=== PATIENT | male | born 1975 | race Caucasian/White ===

== ENCOUNTER 2022-08-30 18:15 | Emergency (ER) | payer OTHER, SELFPAY ==
[2022-08-30 18:28] VITALS: BP 148/78; PULSE 66; RESP 16; TEMP 36.4; O2SAT 100
--- NOTE | 2022-08-30 18:46 | ED.URI ---
HPI - URI/Sore Throat General Chief Complaint: Upper Respiratory Infection Stated Complaint: Sore Throat,Congestion Time Seen by Provider: 08/30/22 18:41 Source: patient Mode of arrival: ambulatory Limitations: no limitations History of Present Illness HPI Narrative: Patient presents today complaining of a 3 day history of sore throat and postnasal drip that is worse in the mornings. Denies fever, cough, or any additional symptoms. He has been taking ibuprofen and Sudafed with some relief. Currently rates his pain 5/10. Related Data Home Medications Medication Instructions Recorded Confirmed cetirizine 10 mg tablet (Zyrtec) 10 mg PO DAILY 08/30/22 08/30/22 omeprazole magnesium 20 mg 20 mg PO DAILY 08/30/22 08/30/22 tablet,delayed release (Prilosec OTC) Allergies Allergy/AdvReac Type Severity Reaction Status Date / Time No Known Allergies Allergy Verified 08/30/22 18:26 Review of Systems Review of Systems: CONSTITUTIONAL: Denies body aches, fever, chills, or sweats. EYES: Denies visual changes, redness, or discharge. ENT: Denies rhinorrhea, congestion, or otalgia.+ sore throat, postnasal drip CARDIOVASCULAR: Denies chest pain, palpitations, or edema. RESPIRATORY: Denies cough or dyspnea. GASTROINTESTINAL: Denies abdominal pain, nausea, vomiting, or diarrhea. GENITOURINARY: Denies dysuria or hematuria. SKIN: Denies rash, itching, or wounds. MUSCULOSKELETAL: Denies back pain, joint pain, or myalgia. NEUROLOGIC: Denies headache, numbness, tingling, or weakness. PSYCH: Denies depression or anxiety. PMFSH Comments At time of signature, I have reviewed and agree with nursing past medical, surgical, social and family history unless otherwise noted. Please see nursing chart for further information. There is no relevant family history pertinent to the presenting complaint Exam Narrative: GENERAL: Well-appearing, well-nourished, and in no acute distress. HEAD: Normocephalic, atraumatic. EYES: EOMI. No redness or drainage. Conjunctivae normal. ENT: Mucous membranes pink and moist. Nares clear. No rhinorrhea. TMs normal bilaterally. Throat erythematous with mild edema. No exudate. Uvula midline. NECK: Normal AROM. Supple. Left anterior cervical chain lymphadenopathy. CHEST: No respiratory distress. Clear to auscultation. HEART: Regular rate and rhythm. No murmur appreciated. EXTREMITIES: Normal range of motion. No edema. SKIN: Warm, dry, no rash. Capillary refill normal. Normal skin turgor. NEURO: No focal deficits. Alert and oriented x3. Gait steady. PSYCH: Normal affect. No signs of depression or anxiety. Course Course Level of Care: Express Care Visit Vital Signs Vital signs: Vital Signs Temperature 97.5 F L 08/30/22 18:28 Pulse Rate 66 08/30/22 18:28 Respiratory Rate 16 08/30/22 18:28 Blood Pressure 148/78 H 08/30/22 18:28 Pulse Oximetry 100 08/30/22 18:28 Oxygen Delivery Room Air 08/30/22 18:28 Temperature 97.5 F L 08/30/22 18:28 Pulse Rate 66 08/30/22 18:28 Respiratory Rate 16 08/30/22 18:28 Blood Pressure 148/78 H 08/30/22 18:28 Pulse Oximetry 100 08/30/22 18:28 Oxygen Delivery Room Air 08/30/22 18:28 Reviewed. Pt has been instructed to follow up with his PCP regarding his elevated blood pressure today. MDM - URI/Sore Throat MDM Narrative Medical decision making narrative: Rapid strep negative. Culture pending. Symptoms consistent with URI. No prescriptions indicated at this time. Anticipatory guidance given. Differential Diagnosis Differential diagnosis: Likely upper respiratory infection, sinusitis, viral infection, pharyngitis and other (Strep throat) Lab Data Attestation: I reviewed the patient's lab results. Labs: Strep Screen Presumptive Negative *(Reference Range: Negative)* Critical Care Time Critical Care Time Critical Care Time: No Discharge Plan Discharge C
== END 2022-08-30 18:56 | disposition home or self-care (01) ==
PROVIDERS: Emergency Provider Nurse Practitioner
DX: J06.9 Acute upper respiratory infection, unspecified (principal)
CPT/HCPCS: 87081; 87880; 99203; G0463

== ENCOUNTER 2022-10-03 11:22 | Emergency (ER) | payer OTHER, SELFPAY ==
--- NOTE | 2022-10-03 11:32 | ED.URI ---
HPI - URI/Sore Throat General Chief Complaint: Upper Respiratory Infection Stated Complaint: cough,wheezing,congestion Time Seen by Provider: 10/03/22 11:32 Source: patient Mode of arrival: ambulatory Limitations: no limitations History of Present Illness HPI Narrative: Peyman is a 47-year-old male patient presenting to the clinic today with complaints of cough, wheezing, and chest congestion x4 days. He reports he took a at home COVID test yesterday and was negative. It is noting a lot of the wheezing at nighttime. Reports some mild shortness of breath and some chest discomfort when taking a deep breath and coughing. MD elicited complaint: cough, rhinorrhea, nasal congestion and other (Wheezing) Related Data Home Medications Medication Instructions Recorded Confirmed cetirizine 10 mg tablet (Zyrtec) 10 mg PO DAILY 08/30/22 10/03/22 omeprazole magnesium 20 mg 20 mg PO DAILY 08/30/22 10/03/22 tablet,delayed release (Prilosec OTC) Allergies Allergy/AdvReac Type Severity Reaction Status Date / Time No Known Allergies Allergy Verified 10/03/22 11:37 Review of Systems Review of Systems: Pertinent positives per HPI. Patient denies any fever, chills, rash, headache, visual changes, dizziness, shortness of breath, chest pain, palpitations, nausea, vomiting, diarrhea, constipation, abdominal pain, or any urinary issues. PMFSH Comments At the time of my signature, I reviewed and agree with the nursing past medical, surgical, social, and family history. There is no relevant family history pertinent to the patient complaint. Exam Narrative: General: Well-developed, well nourished, in no apparent distress Head: Normocephalic, atraumatic Eyes: Pupils equally round and reactive to light bilaterally, EOM intact, sclera and conjunctive clear, no discharge, lids normal Ears: TMs intact and dull,ear, ear canals clear, no drainage, grossly hearing normal. Nose: Nares patent, clear nasal discharge, moderate inflammation, no sinus tenderness. Mouth: Oral pharynx without lesions or masses, good dentition, MMM. Neck: Supple, trachea midline, no enlargement of anterior or posterior cervical nodes, no thyroid masses or goiter palpable. Cardio: Regular rate and rhythm, s1 and s2 normal, no murmur appreciated. Resp: Clear to auscultation bilaterally, no rhonchi, rales, wheezing or rubs Course Course Emergency Course: Portions of this record may have been created with voice recognition software. Level of Care: Express Care Visit Vital Signs Vital signs: Vital signs reviewed MDM - URI/Sore Throat MDM Narrative Medical decision making narrative: At the time of visit patient is resting comfortably on the exam table. Patient did COVID test yesterday was negative. I suspect patient has acute bronchitis. Prescription for Tessalon Perles, prednisone, and albuterol inhaler was sent to the pharmacy. Supportive measures were discussed with the patient he voiced understanding discharge instructions agrees to treatment plan. Differential Diagnosis Differential diagnosis: Likely upper respiratory infection, otitis media, sinusitis, viral infection, bronchitis, influenza, pharyngitis and other (COVID) Discharge Plan Discharge Clinical Impression: Acute bronchitis Qualifiers: Bronchitis organism: unspecified organism Qualified Code(s): J20.9 - Acute bronchitis, unspecified Patient Disposition: Home, Self-Care Condition: Stable Instructions: Antibiotic Form, Acute Bronchitis (ED) Additional Instructions: Take prescription medications only as prescribed- prednisone, albuterol inhaler, and Tessalon Perles Increase fluids and stay well hydrated Tylenol/motrin for pain/fever Flonase and OTC antihistamines as directed Vicks vapor rub to open sinuses Sinus rinses for congestion Cepacol spray, cough drops, throat lozenges, warm tea with honey/lemon, gargle salt water to soothe throat BRAT diet for diarrhea Cl
[2022-10-03 11:36] VITALS: BP 143/78; PULSE 86; RESP 18; TEMP 35.9; O2SAT 99
== END 2022-10-03 11:50 | disposition home or self-care (01) ==
PROVIDERS: Emergency Provider Nurse Practitioner Family
DX: J20.9 Acute bronchitis, unspecified (principal); K21.9 Gastro-esophageal reflux disease without esophagitis; Z86.16 Personal history of COVID-19
CPT/HCPCS: 99213; G0463

== ENCOUNTER 2022-11-24 17:59 | Emergency (ER) | payer OTHER, SELFPAY ==
--- NOTE | ~2022-11-24 | XR_ITS ---
EXAMINATION: XR chest 2V DATE: 11/24/2022 18:47 INDICATION: Generalized chest pain. Arrhythmia. TECHNIQUE: Frontal and lateral views of the chest were obtained. COMPARISON: None. FINDINGS: The chest demonstrates clear lungs without pneumonia, pleural effusion, or pneumothorax. Th e heart size is normal. Surgical clips in the right upper quadrant are likely from cholecystectomy. IMPRESSION: 1. No acute cardiopulmonary disease. Reviewed, dictated and finalized at location E.
--- NOTE | 2022-11-24 18:00 | ECG_ITS ---
Measurements Intervals [place] Rate: 67 P: 60 MD: 176 QRS: 9 QRSD: 83 T: 52 QT: 378 QTc: 400 Interpretive Statements SINUS RHYTHM BORDERLINE R WAVE PROGRESSION, ANTERIOR LEADS BORDERLINE ECG NO PREVIOUS ECG AVAILABLE FOR COMPARISON Electronically Signed On 11-25-2022 8:10:45 CDT by Eddie Goodrich D.O.
[2022-11-24 18:10] VITALS: BP 161/86; PULSE 55; RESP 20; TEMP 36.4; O2SAT 100
[2022-11-24 18:15] LABS: Basophils Percent Auto 0.5 % (0.2-1.2); Eosinophils Absolute Auto 0.1 K/mm3 (0-0.3); Eosinophils Percent Auto 1.8 % (0-4.4); Hematocrit 43.9 % (42.0-52.0); Hemoglobin 14.3 g/dL (14.0-18.0); Immature Granulocyte Absolute 0.02 K/mm3 (0.00-0.031); Immature Granulocyte Percent A 0.3 % (0-0.5); Lymphocytes Absolute Auto 2.12 K/mm3 (0.9-3.2); Lymphocytes Percent Auto 33.8 % (18.3-44.2); Mean Corpuscular HGB Conc 32.6 g/dl (32-36); Mean Platelet Volume 10.3 fl (7.4-10.4); Monocytes Absolute Auto 0.6 K/mm3 (0.1-0.6); Monocytes Percent Auto 8.8 % (2.6-8.5); Neutrophils Absolute Auto 3.4 K/mm3 (1.3-6.7); Neutrophils Percent Auto 54.8 % (45.5-73.1); Platelet Count Result 234 k/mm3 (150-375); Red Blood Count 5.49 M/mm3 (4.6-6.20); Red Cell Distribution Width 14.5 % (11.5-14.5); White Blood Count 6.3 K/mm3 (4.5-10.0)
[2022-11-24 18:30] LABS: Alanine Aminotransferase 23 U/L (6-50); Albumin Level 4.4 g/dL (3.5-5.1); Alkaline Phosphatase 76 U/L (38-126); Anion Gap 6 mmol/L (8-16); Aspartate Amino Transferase 30 U/L (17-59); Bilirubin,Total 0.4 mg/dL (0.2-1.3); Blood Urea Nitrogen 14 mg/dL (9-20); Calcium 8.3 mg/dL (8.4-10.2); Carbon Dioxide 28 mmol/L (22-30); Chloride 105 mmol/L (98-107); Estimated CRCL calculation 93 ml/min; Estimated Glomerular Filt Rate > 60; Glucose 118 mg/dL (65-110); Potassium 3.6 mmol/L (3.4-5.0); Prothrombin Time 13.1 Seconds (11.1-14.7); Sodium 139 mmol/L (137-145)
[2022-11-24 18:31] LABS: Partial Thromboplastin Time 28.1 SECONDS (22.3-36.8)
[2022-11-24 18:36] LABS: Troponin I < 0.012 ng/mL (0.000-0.034)
[2022-11-24 18:51] VITALS: O2SAT 100
[2022-11-24 18:56] LABS: Lipase 156 U/L (23-300)
[2022-11-24 18:58] VITALS: BP 148/107; PULSE 55; RESP 14; O2SAT 100
--- NOTE | 2022-11-24 19:35 | ED.GENADULT ---
HPI - General Adult General Chief complaint: Chest Pain Stated complaint: chest pain Time Seen by Provider: 11/24/22 19:03 History of Present Illness HPI narrative: This is a 47-year-old male who denies significant past medical history, presenting to the emergency department complaining of intermittent lightheadedness and chest pain for the past day. The patient states 1 week ago, he noted an episode of lightheadedness. Yesterday, he had throbbing right arm pain, today approximately 1 hour prior to arrival he noticed sharp back and chest pain, rated 4/10 lasting approximately 20 minutes with radiation to the left arm. This was associated with mild nausea. He was seen by his primary care doctor 2 days ago with any unremarkable EKG. He has a follow-up appointment with his salvage mechanic in 5 days. Related Data Home Medications Medication Instructions Recorded Confirmed cetirizine 10 mg tablet (Zyrtec) 10 mg PO DAILY 08/30/22 10/03/22 omeprazole magnesium 20 mg 20 mg PO DAILY 08/30/22 10/03/22 tablet,delayed release (Prilosec OTC) Allergies Allergy/AdvReac Type Severity Reaction Status Date / Time No Known Allergies Allergy Verified 10/03/22 11:37 Review of Systems Review of Systems: CONSTITUTIONAL: Denies fever, chills, or sweats. CARDIOVASCULAR: Chest and back pain denies palpitations, or edema. RESPIRATORY: Denies cough or dyspnea. GASTROINTESTINAL: Denies abdominal pain, nausea, vomiting, or diarrhea. GENITOURINARY: Denies dysuria or hematuria. SKIN: Denies rash or itching. MUSCULOSKELETAL: Denies back pain, joint pain, or myalgia. NEUROLOGIC: Lightheadedness denies headache, numbness, dizziness, or weakness. PSYCHIATRIC: Denies anxiety or depression. [facility] Social History Social History (Updated 11/24/22 @ 19:39 by Mustapha Mcclendon MD) Smoking status: Never smoker Alcohol intake: current Drinks per week: 1 Substance use: current Substance use type: marijuana Last use: 1 month ago Exam Narrative: GENERAL: Well-developed, well-nourished, and in no acute distress. HEAD: Normocephalic, atraumatic. EYES: PERRLA and EOMI. ENT: Nares clear, no rhinorrhea or epistaxis. Mucous membranes moist. Oropharynx without tonsillar hypertrophy exudate or other lesions. NECK: Supple. No adenopathy or masses. No carotid bruits or JVD CHEST: Clear to auscultation. No respiratory distress. No wheezes rales or rhonchi HEART: Regular rate and rhythm. No murmur heard. Normal peripheral pulses. ABDOMEN: Soft, nontender, nondistended, normal active bowel sounds. EXTREMITIES: Normal range of motion. No edema. SKIN: Warm, dry, no rash. NEURO: No focal deficits. Alert and oriented x3. PSYCH: Normal mood and affect. Course Course Emergency Course: 19:41 - CBC unremarkable. Chemistries demonstrate mild hypocalcemia of 8.3 but is otherwise unremarkable. Troponin negative. Chest x-ray unremarkable. HEART score 2 22:03 - Repeat troponin negative. TSH within normal limits. My suspicion for ACS is low at this time. Review of the patient's hospital medical assistant shows intermittent episodes of bradycardia to the mid 50s without other arrhythmias or bradycardic episodes below the 40s. I discussed these findings with the patient with recommendations to follow-up with his primary care doctor and salvage mechanic in 5 days. Discussed return and emergency precautions including signs/symptoms of ACS and respiratory distress. The patient voiced understanding and is comfortable with the plan. All questions answered to his satisfaction. Vital Signs Vital signs: Vital Signs Temperature 97.5 F L 11/24/22 18:10 Pulse Rate 55 L 11/24/22 18:10 Respiratory Rate 20 11/24/22 18:10 Blood Pressure 161/86 H 11/24/22 18:10 Pulse Oximetry 100 11/24/22 18:10 Oxygen Delivery Room Air 11/24/22 18:10 Temperature 97.5 F L 11/24/22 18:10 Pulse Rate 59 L 11/24/22 20:00 Respiratory Rate 14 11/24/22 20:00 Bloo
[2022-11-24 20:00] VITALS: BP 129/84; PULSE 59; RESP 14; O2SAT 99
[2022-11-24 21:47] LABS: Troponin I < 0.012 ng/mL (0.000-0.034)
[2022-11-24 22:17] VITALS: BP 124/84; PULSE 59; RESP 16; O2SAT 100
== END 2022-11-24 22:19 | disposition home or self-care (01) ==
PROVIDERS: Emergency Medicine; Emergency Provider Preventive Medicine Aerospace Medicine
DX: R07.89 Other chest pain (principal); R94.31 Abnormal electrocardiogram [ECG] [EKG]
CPT/HCPCS: 36415; 71046; 80053; 83690; 84443; 84484; 85025; 85610; 85730; 93005; 99284

== ENCOUNTER 2022-12-15 13:39 | Emergency (ER) | payer OTHER, SELFPAY ==
--- NOTE | ~2022-12-15 | XR_ITS ---
EXAMINATION: XR TMJ BI DATE: 12/15/2022 14:30 INDICATION: Locking jaw. TECHNIQUE: Open and closed mouth views of the bilateral temporomandibular joints for a total of 4 vie ws on 5 radiographs were obtained. COMPARISON: None. FINDINGS: The mandibular condyles are normal in morphology. There is normal anterior translation of t he mandibular condyles in the open-mouth position. IMPRESSION: 1. Normal temporomandibular joints. Reviewed, dictated and finalized at location A.
[2022-12-15 13:48] VITALS: BP 133/77; PULSE 63; RESP 14; TEMP 36.5; O2SAT 100
--- NOTE | 2022-12-15 13:59 | ED.DENTAL ---
HPI - Dental/Oral General Chief complaint: Dental/Oral Stated complaint: Rt Jaw Pain Time Seen by Provider: 12/15/22 13:59 Source: patient Mode of arrival: ambulatory Limitations: no limitations History of Present Illness HPI Narrative: 47 yo M presents with c/o pain to R TMJ for approx. 1 wk. States pain and stiff. When he wakes up in the morning stuck open on R side . After chewing and moving jaw loosens up throughout the day. Unsure if he grinds his teeth. Denies injury. Going out of town for vacation and wanted to see if something could be done to not have this pain while out of town. Denies dental pain. All systems reviewed and negative except as noted above. Related Data Home Medications Medication Instructions Recorded Confirmed cetirizine 10 mg tablet (Zyrtec) 10 mg PO DAILY 08/30/22 12/15/22 omeprazole magnesium 20 mg 20 mg PO DAILY 08/30/22 12/15/22 tablet,delayed release (Prilosec OTC) Allergies Allergy/AdvReac Type Severity Reaction Status Date / Time No Known Allergies Allergy Verified 12/15/22 13:48 Review of Systems Review of Systems: CONSTITUTIONAL: Denies fever, chills, or sweats. EYES: Denies visual changes, redness, or discharge. ENT: Denies rhinorrhea, congestion, sore throat, or otalgia. Reports R TMJ pain CARDIOVASCULAR: Denies chest pain, palpitations, or edema. RESPIRATORY: Denies cough or dyspnea. GASTROINTESTINAL: Denies abdominal pain, nausea, vomiting, or diarrhea. GENITOURINARY: Denies dysuria or hematuria. SKIN: Denies rash or itching. MUSCULOSKELETAL: Denies back pain, joint pain, or myalgia. NEUROLOGIC: Denies headache, numbness, or weakness. PSYCHIATRIC: Denies anxiety or depression. All other systems reviewed are negative, except as documented in HPI. PMFSH Social History Social History (Updated 11/24/22 @ 19:39 by Mustapha Mcclendon MD) Smoking status: Never smoker Alcohol intake: current Drinks per week: 1 Substance use: current Substance use type: marijuana Last use: 1 month ago Comments At time of signature, agree with nursing past medical, surgical, social and family history. There is no relevant family history pertinent to the presenting complaint. Exam Narrative: GENERAL: This is a well-nourished, well-developed patient, in no apparent distress. HEAD: normocephalic, atraumatic. EYES: PERRL. Sclera clear/white. Vision is grossly intact. EARS: External ears normal NOSE: External nose normal THROAT: Mucous membranes moist, posterior pharynx clear. MOUTH: normal range of motion of jaw. No tenderness on palpation of TMJs. no clicking or popping. No unilateral facial swelling. NECK: Neck supple, non-tender without lymphadenopathy, masses or thyromegaly. CARDIOVASCULAR: Regular rate and rhythm without murmurs, gallops, or rubs. RESPIRATORY: Clear to auscultation. Breath sounds equal bilaterally. No wheezes, rales, or rhonchi. SKIN: warm, Dry, intact with no suspicious lesions or rash, good texture and turgor. NEURO: awake, alert, and oriented to person, place and time. There were no obvious focal neurologic abnormalities. EXTREMITIES: No joint tenderness, effusion, or edema noted. Course Course Level of Care: Express Care Visit Vital Signs Vital signs: Vital Signs Temperature 36.5 C 12/15/22 13:48 Pulse Rate 63 12/15/22 13:48 Respiratory Rate 14 12/15/22 13:48 Blood Pressure 133/77 12/15/22 13:48 Pulse Oximetry 100 12/15/22 13:48 Oxygen Delivery Room Air 12/15/22 13:48 Temperature 36.5 C 12/15/22 13:48 Pulse Rate 63 12/15/22 13:48 Respiratory Rate 14 12/15/22 13:48 Blood Pressure 133/77 12/15/22 13:48 Pulse Oximetry 100 12/15/22 13:48 Oxygen Delivery Room Air 12/15/22 13:48 reviewed MDM - Dental/Oral MDM Narrative Medical decision making narrative: discussed x-ray results with pt. recommend seeing a dentist or teachers' aide, trying mouth guard. Patient is aware of di
== END 2022-12-15 14:50 | disposition home or self-care (01) ==
PROVIDERS: Emergency Provider Nurse Practitioner Family
DX: M26.621 Arthralgia of right temporomandibular joint (principal)
CPT/HCPCS: 70330; 99213; G0463

== ENCOUNTER 2023-04-03 17:53 | Emergency (ER) | payer OTHER, SELFPAY ==
[2023-04-03 18:08] VITALS: BP 140/79; PULSE 63; RESP 16; TEMP 36.6; O2SAT 100
--- NOTE | 2023-04-03 18:09 | ED.WOUNDLAC ---
HPI - Wound/Laceration General Chief Complaint: Wound/Laceration Stated Complaint: suture removal Source: patient Mode of arrival: ambulatory Limitations: no limitations History of Present Illness HPI narrative: 48-year-old male presented for suture removal. He states she had hair transplant using [employer], and was advised to have sutures removed yesterday, however it was his birthday and he elected to have them removed today. Sutures extend across the back of the head from ear to ear. He denies any complications of the surgery. He endorses a scab to the anterior scalp which she would like evaluated. Related Data Home Medications Medication Instructions Recorded Confirmed cetirizine 10 mg tablet (Zyrtec) 10 mg PO DAILY 08/30/22 12/15/22 omeprazole magnesium 20 mg 20 mg PO DAILY 08/30/22 12/15/22 tablet,delayed release (Prilosec OTC) Allergies Allergy/AdvReac Type Severity Reaction Status Date / Time No Known Allergies Allergy Verified 12/15/22 13:48 Review of Systems Review of Systems: CONSTITUTIONAL: Denies body aches, fever, chills, or sweats. EYES: Denies visual changes, redness, or discharge. ENT: Denies rhinorrhea, congestion CARDIOVASCULAR: Denies chest pain, palpitations, or edema. RESPIRATORY: Denies cough or dyspnea. GASTROINTESTINAL: Denies abdominal pain, nausea, vomiting, or diarrhea. SKIN: Reports sutures to scalp MUSCULOSKELETAL: Denies back pain, joint pain, or myalgia. NEUROLOGIC: Denies headache, numbness, tingling, or weakness. [facility] Past Medical History Medical History (Updated 04/03/23 @ 19:36 by Laura Shields APRN) No pertinent past medical history Social History Social History Smoking status: Never smoker Alcohol intake: current Drinks per week: 1 Substance use: current Substance use type: marijuana Last use: 1 month ago Comments At time of signature, I have reviewed and agree with nursing past medical, surgical, social and family history unless otherwise noted. Please see nursing chart for further information. There is no relevant family history pertinent to the presenting complaint Exam Narrative: GENERAL: Well-appearing HEAD: Normocephalic, Sutures in place posterior scalp, scab to left anterior scalp. EYES: conjunctivae clear, and EOMI. ENT: Mucous membranes moist. Oropharynx without edema, erythema or lesions. NECK: Supple. No lymphadenopathy CHEST: Clear to auscultation. HEART: Regular rate and rhythm. SKIN: Warm, dry. Irregular scab approx 2cm to left anterior scalp, firm and intact; no surrounding induration, fluctuance, or active drainage. Blue sutures to posterior scalp extending across from ear to ear in continuous pattern. Incision healing well, edges approximated, no surrounding induration or signs of infection. NEURO: Alert and oriented x3. Course Course Emergency Course: Patient is aware of diagnosis, understands and agrees to treatment plan. Anticipatory guidance given. Patient agrees to follow-up as directed and is aware of reasons to seek care at the emergency department. Portions of this record may have been created with voice recognition software Level of Care: Express Care Visit Vital Signs Vital signs: Vital Signs Temperature 97.8 F 04/03/23 18:08 Pulse Rate 63 04/03/23 18:08 Respiratory Rate 16 04/03/23 18:08 Blood Pressure 140/79 04/03/23 18:08 Pulse Oximetry 100 04/03/23 18:08 Oxygen Delivery Room Air 04/03/23 18:08 Temperature 97.8 F 04/03/23 18:08 Pulse Rate 63 04/03/23 18:08 Respiratory Rate 16 04/03/23 18:08 Blood Pressure 140/79 04/03/23 18:08 Pulse Oximetry 100 04/03/23 18:08 Oxygen Delivery Room Air 04/03/23 18:08 Reviewed Procedures Other Procedure Procedure 1: Other Procedure: Continuous sutures removed from posterior head, approx 20cm length. Pt tolerated well. N
== END 2023-04-03 18:35 | disposition home or self-care (01) ==
PROVIDERS: Emergency Provider Nurse Practitioner Family
DX: Z48.02 Encounter for removal of sutures (principal)
CPT/HCPCS: 99211; G0463

== ENCOUNTER 2023-10-01 12:35 | Outpatient (CLI) | payer OTHER, SELFPAY ==
--- NOTE | 2023-10-01 12:49 | ECG_ITS ---
Measurements Intervals [place] Rate: 61 P: 63 HI: 174 QRS: -1 QRSD: 75 T: 36 QT: 367 QTc: 371 Interpretive Statements SINUS RHYTHM WITH OCCASIONAL ECTOPIC PREMATURE COMPLEXES OTHERWISE UNREMARKABLE ECG COMPARED TO ECG 11/24/2022 18:03:44 NO SIGNIFICANT CHANGES Electronically Signed On 10-01-2023 13:21:19 CDT by Akhil Chaudhary M.D.
== END 2023-10-01 12:36 | disposition home or self-care (01) ==
LOC: ANHCARD 12:37
PROVIDERS: PCP Family Medicine; Visit Provider Family Medicine
DX: I48.0 Paroxysmal atrial fibrillation (principal)
CPT/HCPCS: 93005

== ENCOUNTER 2023-10-18 08:53 | Day surgery (SDC) | payer OTHER, SELFPAY ==
[2023-09-28 13:13] VITALS: BMI 30.9
[2023-10-04 14:35] VITALS: BMI 31.2
--- NOTE | 2023-10-18 09:47 | WPDANESEPPF ---
Anes - Initial Pre Proc Eval Procedure: Operation Date: 10/18/23 11:00 Proposed Procedures p Esophagogastroduodenoscopy - Holger Tobar MD Date/Time: 10/18/23 09:47 Surgeon: Holger Tobar MD Pre Op Diagnosis: GERD without esophagitis Patient Data Age: 48 Gender: M Height: 1.83 m Weight: 104.5 kg Allergies Allergy/AdvReac Type Severity Reaction Status Date / Time No Known Allergies Allergy Verified 10/18/23 09:50 Home Medications Medication Instructions Recorded Confirmed Type cetirizine 10 mg tablet (Zyrtec) 10 mg PO DAILY 08/30/22 10/18/23 History omeprazole magnesium 20 mg 20 mg PO DAILY #90 tabs 08/22/23 10/18/23 Rx tablet,delayed release (Prilosec OTC) sildenafil 50 mg tablet 50 mg PO DAILY PRN Sexual Activity 08/22/23 10/18/23 History glucosamine sulf dipot 1 cap PO DAILY 10/11/23 10/18/23 History chlr,msm,chond 550 mg-C 30 mg-rio 1 mg capsule (Glucosamine Chondroitin) melatonin 10 mg chewable tablet 10 mg PO HS 10/11/23 10/18/23 History metoprolol succinate 25 mg 25 mg PO DAILY 10/11/23 10/18/23 History tablet,extended release 24 hr multivitamin with minerals-folic 1 tablet PO DAILY 10/11/23 10/18/23 History acid 0.4 mg tablet Patient hx anesthesia problems: none Family hx anesthesia problems: none Results Review: All pre-operative results and documents have been reviewed as part of the pre-operative evaluation. [facility] Past Medical History Medical History Allergies BMI 30.0-30.9,adult BMI 31.0-31.9,adult Chronic anxiety TSH 1.52 with free T4 1.3 on 09/19/2023. Colon cancer screening patient reports normal colonoscopy around 2018. Diverticulitis Elevated fasting glucose (09/29/23) glucose 101 with hemoglobin A1c 6.1 on 09/29/2023. Encounter for prostate cancer screening PSA 1.31 on 09/29/2023. Encounter for wellness examination in adult Gallbladder disorder GERD (gastroesophageal reflux disease) IBS (irritable bowel syndrome) Kidney stones Male erectile dysfunction, unspecified Total testosterone 342, free testosterone 52 on 09/29/2023. No pertinent past medical history Obesity (BMI 30.0-34.9) Osteoarthritis involving multiple joints on both sides of body Paroxysmal atrial fibrillation (~09/22/23) EKG 10/01/2023 with normal sinus rhythm with occasional PVC. Seasonal allergic rhinitis Slow heart rate Weight loss Family History Family History Father , at age 34 Diabetes mellitus Heart disease Cerebrovascular accident Mother Alcoholism Depression Anxiety Heart disease Sibling Spina bifida Other Lymphoma Grandparent Diabetes mellitus Anxiety Depression Heart disease Social History Social History Smoking status: Never smoker Alcohol intake: current Alcohol use details: rarely Substance use: former Current Housing: Decline to Answer Concerned About Future Housing: Decline to Answer Difficulty Paying Gas/Electric Bills: Decline to Answer Difficulty Paying for Meds: Decline to Answer Currently Unemployed: Decline to Answer Education: Decline to Answer Difficulty w/ Childcare or Family Care: Decline to Answer Living arrangements: with family Spiritual care concerns: No Anes - Eval Final PreProcedure Day of Procedure 10/18/23 09:47 Patient weight: obese Heart: regular rate and rhythm Lungs: clear to auscultation Airway: Mallampati scale class II Neurological: alert and oriented Last oral intake: >/= 8 hours ASA classification: III Emergent: no Anesthetic plan: proceed Anesthesia type and monitoring: general GIVS and standard monitoring Results Review: All pre-operative results and documents have been reviewed as part of the pre-operative evaluation. Informed Consent: The patient's anesthetic p
[2023-10-18 09:57] VITALS: BMI 30.7
[2023-10-18 09:59] VITALS: BP 123/77; PULSE 55; RESP 18; TEMP 36.3; O2SAT 100
[2023-10-18] MEDS: LACTATED RINGERS 1,000 ML 150 ML IV CONT (10:15)
--- NOTE | 2023-10-18 10:28 | PM.HPGS ---
History of Present Illness History of Present Illness Consent: Risks, benefits, and alternatives have been discussed and questions answered. Patient agrees to proceed with procedure. Chief complaint: GERD without esophagitis Narrative: Peyman Watkins is a 48 year old male presents for EGD. Patient has lifelong history of acid reflux. He has been treated with Prilosec 20mg p.o. daily for many years. Occasionally supplements this with Pepcid at bedtime. Recently has noticed substernal discomfort with swallowing. He denies any overt dysphagia. He has had no weight loss or bleeding. He presents for follow-up EGD. Previous EGD was reported 10-15 years ago was reported to be relatively unremarkable. Review of Systems Review of Systems: Review of systems noncontributory. [facility] Past Medical History Medical History Allergies BMI 30.0-30.9,adult BMI 31.0-31.9,adult Chronic anxiety TSH 1.52 with free T4 1.3 on 09/19/2023. Colon cancer screening patient reports normal colonoscopy around 2018. Diverticulitis Elevated fasting glucose (09/29/23) glucose 101 with hemoglobin A1c 6.1 on 09/29/2023. Encounter for prostate cancer screening PSA 1.31 on 09/29/2023. Encounter for wellness examination in adult Gallbladder disorder GERD (gastroesophageal reflux disease) IBS (irritable bowel syndrome) Kidney stones Male erectile dysfunction, unspecified Total testosterone 342, free testosterone 52 on 09/29/2023. No pertinent past medical history Obesity (BMI 30.0-34.9) Osteoarthritis involving multiple joints on both sides of body Paroxysmal atrial fibrillation (~09/22/23) EKG 10/01/2023 with normal sinus rhythm with occasional PVC. Seasonal allergic rhinitis Slow heart rate Weight loss Family History Family History Father , at age 34 Diabetes mellitus Heart disease Cerebrovascular accident Mother Alcoholism Depression Anxiety Heart disease Sibling Spina bifida Other Lymphoma Grandparent Diabetes mellitus Anxiety Depression Heart disease Social History Social History Smoking status: Never smoker Alcohol intake: current Alcohol use details: rarely Substance use: former Current Housing: Decline to Answer Concerned About Future Housing: Decline to Answer Difficulty Paying Gas/Electric Bills: Decline to Answer Difficulty Paying for Meds: Decline to Answer Currently Unemployed: Decline to Answer Education: Decline to Answer Difficulty w/ Childcare or Family Care: Decline to Answer Living arrangements: with family Spiritual care concerns: No Meds Home Medications and Allergies Home Medications Medication Instructions Recorded Confirmed Type cetirizine 10 mg tablet (Zyrtec) 10 mg PO DAILY 08/30/22 10/18/23 History omeprazole magnesium 20 mg 20 mg PO DAILY #90 tabs 08/22/23 10/18/23 Rx tablet,delayed release (Prilosec OTC) sildenafil 50 mg tablet 50 mg PO DAILY PRN Sexual Activity 08/22/23 10/18/23 History glucosamine sulf dipot 1 cap PO DAILY 10/11/23 10/18/23 History chlr,msm,chond 550 mg-C 30 mg-rio 1 mg capsule (Glucosamine Chondroitin) melatonin 10 mg chewable tablet 10 mg PO HS 10/11/23 10/18/23 History metoprolol succinate 25 mg 25 mg PO DAILY 10/11/23 10/18/23 History tablet,extended release 24 hr multivitamin with minerals-folic 1 tablet PO DAILY 10/11/23 10/18/23 History acid 0.4 mg tablet Allergies Allergy/AdvReac Type Severity Reaction Status Date / Time No Known Allergies Allergy Verified 10/18/23 09:50 Vital Signs Vital Signs - 24 hr 10/18/23 09:59 Temperature 97.4 F L Pulse Rate 55 L Respiratory Rate 18 Blood Pressure 123/77 Pulse Oximetry 100 Oxygen Delivery Room Air Exam Narrative: Physical exam reveals patient
[2023-10-18 11:43] VITALS: BP 113/69; PULSE 59; RESP 14; O2SAT 97
--- NOTE | 2023-10-18 11:43 | WPDANESPN ---
Anes - Prog Note Post-Op Date/Time: 10/18/23 11:43 Cardiovascular status: normal Respiratory status: normal Airway patency: baseline Mental status: baseline Post-Op hydration status: normal Vital Signs: Last Vital Signs Temp 36.3 C L 10/18/23 09:59 Pulse 55 L 10/18/23 09:59 Resp 18 10/18/23 09:59 BP 123/77 10/18/23 09:59 Pulse Ox 100 10/18/23 09:59 O2 Del Method Room Air 10/18/23 09:59 Pain Score (VAS): 0 Patient Feedback: Patient satisfied with anesthetic care.
[2023-10-18 11:53] VITALS: BP 106/64; PULSE 57; RESP 16; O2SAT 97
[2023-10-18 12:03] VITALS: BP 113/71; PULSE 57; RESP 16; O2SAT 99
== END 2023-10-18 12:25 | disposition home or self-care (01) ==
PROVIDERS: PCP Family Medicine; Visit Provider Internal Medicine Gastroenterology
PROC: 0DJ08ZZ Inspection of Upper Intestinal Tract, Via Natural or Artificial Opening Endoscopic (ICD-10-PCS; CPT 43235; principal; 2023-10-18 11:00)
DX: K21.9 Gastro-esophageal reflux disease without esophagitis (principal)
CPT/HCPCS: 43239

== ENCOUNTER → 2025-04-07 12:15 | Outpatient (CLI) | payer OTHER, SELFPAY ==
--- NOTE | ~2025-04-07 | XR_ITS ---
EXAMINATION: XR abdomen/kub 1V, 04/07/2025 12:08 CDT HISTORY: R10.A1 - Flank pain, right side COMPARISON: No comparisons available. Technique: 3 view. Findings: Bowel gas pattern unremarkable. No obstruction. No free air. No abnormal calcifications No acute osseous abnormality. Impression: 1. No acute abnormality. Reviewed, dictated and finalized at location P. Impression: 1. No acute abnormality.
--- OUTSIDE RECORDS SUMMARY | 2025-04-07 13:12 | XMS_ITS | Clinical Summary ---
Author Organization [facility] Address [address] [place] [address] Care Team Providers Care Color Depositing Machine Tender Name Role Phone Otoniel Willard MD Primary Care Provider [phone] Allergies No known active allergies Medications acetaminophen (SB NON-ASPIRIN) 80 MG chewable tablet Chew 1 tablet (80 mg total) by mouth. Active metoprolol succinate ER (TOPROL-XL) 25 MG 24 hr tablet Take 1 tablet (25 mg total) by mouth daily. 5 Active omeprazole (PRILOSEC) 20 MG capsule Take 1 capsule (20 mg total) by mouth daily. 5 Active sildenafil (VIAGRA) 50 MG tablet TAKE ONE TABLET BY MOUTH APPROXIMATELY 30 MINUTES TO 4 HOURS BEFORE SEXUAL ACTIVITY. DO NOT USE MORE THAN ONE DOSE DAILY 5 Active Active Problems Problem Noted Date Diagnosed Date Heart palpitations 04/03/2025 Bradycardia 11/29/2022 Lightheadedness 11/29/2022 Near syncope 11/29/2022 Encounters Date Type Department Care Team Description 04/03/2025 1:45 PM CDT Office Visit [facility] [address] [place] [id number] Hannah Bender MD Consult; Palpitations 04/03/2025 Travel from Last 3 Months Family History Medical History Relation Comments Heart Attack Father Stroke Father Valve Disease Mother Heart Attack Paternal Grandfather Heart Attack Paternal Grandmother Relation Status Comments Brother Alive Father (Age 32) Mother Alive Paternal Grandfather (Age 74) Paternal Grandmother (Age 72) Social History Tobacco Use Types Packs/Day Years Used Date Smoking Tobacco: Never Smokeless Tobacco: Never Tobacco Cessation:Counseling Given: Not Answered Alcohol Use Standard Drinks/Week Comments Yes 0 (1 standard drink = 0.6 oz pur e alcohol) 1 a week/ social Sex and Gender Information Value Date Recorded Sex Assigned at Not on file Legal Sex Male 6:45 PM CDT Gender Identity Not on file Sexual Orientation Not on file Last Filed Vital Signs Vital Sign Reading Time Taken Comments Blood Pressure 142/84 04/03/2025 1:51 PM CDT Pulse 58 04/03/2025 1:51 PM CDT Temperature 36.4 C (97.6 F) 09/28/2023 4:15 PM CDT Respiratory Rate 18 09/28/2023 6:11 PM CDT Oxygen Saturation 99% 04/03/2025 1:51 PM CDT Inhaled Oxygen Concentration - - Weight 104.3 kg (230 lb) 04/03/2025 1:51 PM CDT Height 182.9 cm (6') 04/03/2025 1:51 PM CDT Body Mass Index 31.19 04/03/2025 1:51 PM CDT Plan of Treatment Upcoming Encounters Date Type Department Care Team (Late st Contact Info) Description 04/15/2025 10:30 AM CDT Appointment [facility] [place] [address] Hannah Bender MD [facility] [address] [place] [id number] 04/15/2025 11:30 AM CDT Telephone [address] [address] Hannah Bender MD [facility] [address] [place] [address] 04/23/2025 12:45 PM CDT Office Visit [address] [address] Hannah Bender MD [facility] [address] [place], [place] [id number] Health Maintenance Due Date Last Done Comments Colorectal Cancer Screening Colonoscopy (10 Years) 1975 Annual Physical 1978 Hepatitis C 1993 DTaP, Tdap and Td Vaccines (1 - Tdap) 1994 Hepatitis B Vaccines (1 of 3 - 19+ 3-dose series) 1994 COVID-19 Vaccine ( - season) 2025 04/16/2023, 03/27/2022, 06/02/2021, Additional history exists Influenza Adult (#1) 2025 04/16/2023, 05/04/2022, 04/09/2021 Pneumococcal Vaccine: 50+ Years (1 of 1 - PCV) 2025 Zoster Vaccines (1 of 2) 2025 Meningococcal B Vaccine Aged Out No l onger eligible based on patient's age to complete this topic Meningococcal Vaccine Aged Out No patricia vijaya eligible based on patient's age to complete this topic RSV Immunizations Under 20 Months Aged Out No longer eligible based on patient's age to complete this topic Procedures Procedure Name Priority Date/Time Associated Diagnosis Comments ELECTROCARDIOGRAM (NON MIDMARK ACQUIRED) Routine 04/03/2025 2:01 PM CDT Palpitations Procedure Note - 04/03/2025 2:01 PM CDTThis note is in progress. [facility] Test Date: 2025-04-03 Pat Name: YOKASTA WATKINS Department: 112 Room: Gender: Male Watermaster: : 1975 Requested By: HANNAH BENDER Order Number: [id number] Huong MD: HANNAH BENDER Measurements Intervals [place] Rate: 58 P: 62 VA: 187 QRS: 6 QRSD: 81 T: 47 QT: 388 QTc: 382 Interpretive Statements SINUS BRADYCARDIA WARNING: DATA QUALITY MAY AFFECT INTERPRETATION from Last [address] [facility] Care Teams Color Depositing Machine Tender Relationship Specialty Start Date End Date Otoniel Willard MD [address] [place] [address] [address] [place] [address] PCP - General FAMILY PRACTICE 09/28/23
--- OUTSIDE RECORDS SUMMARY | 2025-04-07 13:12 | XMS_ITS | Clinical Summary ---
Author Organization [facility] Address [address] [place] [phone] Care Team Providers Care Sales Office Assistant Name Role Phone Abel Real MD Primary Care Provider [phone] Immunizations Immunization Administration Dates Next Due Pfizer SARS-CoV-2 Monovalent Vaccination (12+ Yrs) PURPLE 10/16/2020,09/24/2020 Social History Tobacco Use Types Packs/Day Years Used Date Smoking Tobacco: Never Assessed Personal Safety Answer Date Recorded Getting School Help Needed Not on file 09/13 Sex and Gender Information Value Date Recorded Sex Assigned at Not on file 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 Gender Identity Not on file Sexual Orientation Not on file Plan of Treatment Health Maintenance Due Date Last Done Comments Colon Cancer Screening-Colonoscopy 1975 Depression Screening 1975 DTaP/Tdap/Td Vaccine (1 - Tdap) 1986 Hepatitis B Screening 1993 Regular Well Visit/Exam 18-64 1993 Covid-19 Vaccine ( season) 2025 03/27/2022, 06/02/2021, 10/16/2020, Additional history exists Influenza Vaccine (#1) 2025 05/04/2022, 2020 Hepatitis C Screening Completed 09/19/2013 Pneumococcal vaccine <65 Aged Out No longer eligible based on patient's age to complete this topic Procedures Procedure Name Priority Date/Time Associated Diagnosis Comments SERUM HEPATITIS C AB Routine 09/19/2013 5:30 AM CDT from Last 3 Months or Most Recently Relevant to Health Maintenance Results * Serum Hepatitis C ab (09/19/2013 5:30 AM CDT) HCV ab Negative NEG HISTORICAL RESULTS Serum 09/19/2013 5:30 AM CDT Narrative HISTORICAL RESULTS - 09/20/2013 6:05 AM CDT {Testing performed by: [place] [address]} Interpretive Data If confirmation is required, call Laboratory Customer Service to request sample to be sent to [facility] for Hepatitis C Virus (HCV) RNA Detection and Quantitation by Real-Time Reverse Real Estate Agent-PCR (RT-PCR). Current interpretive data was last revised on 2011 us Karan Helm MD LAB BLOOD ORDERABLES Final Re sult HISTORICAL RESULTS from Last 3 Months or Most Recently Relevant to Health Maintenance Insurance CHOICE PLUS [facility] HMO/PPO Address: [facility] [address] [place] [address] Care Teams Sales Office Assistant Relationship Specialty Start Date End Date Abel Real MD PCP - General Family Medicine 07/27/22
--- OUTSIDE RECORDS SUMMARY | 2025-04-07 13:12 | XMS_ITS | Clinical Summary ---
Author Organization [facility] Address [address] [facility] [place] [address] Phone Care Team Providers Care Ordnance Artificer Name Role Phone Archie Manley DO Primary Care Provider [phone] Allergies No known active allergies Medications omeprazole (PriLOSEC) 20 mg Capsule, Delayed Release(E.C.) Take 20 mg by mouth daily. Active acetaminophen-co deine (TYLENOL #3) 300-30 mg tabletIndication s:Right ureteral stone Take 1 Tablet by mouth every 6 hours as needed for Pain. 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 Gender Identity Not on file Sexual Orientation Not on file Last Filed Vital Signs Vital Sign Reading Time Taken Comments Blood Pressure 156/89 01/04/2020 5:15 AM CDT Pulse 67 01/04/2020 5:15 AM CDT Temperature 36.6 C (97.8 F) 01/04/2020 2:50 AM CDT Respiratory Rate 18 01/06/2020 2:11 PM CDT Oxygen Saturation 95% 01/04/2020 5:15 AM CDT Inhaled Oxygen Concentration - - Weight 113.4 kg (250 lb) 01/06/2020 2:11 PM CDT Height 182.9 cm (6') 01/06/2020 2:11 PM CDT Body Mass Index 33.91 01/06/2020 2:11 PM CDT Plan of Treatment Health Maintenance Due Date Last Done Comments DTAP/TDAP/TD VACCINES (1 - Tdap) 1994 HEPATITIS B VACCINES (1 of 3 - 19+ 3-dose series) 08/1993 COLORECTAL SCREENING 2020 Colorectal Cancer Screening 2020 FIT-DNA Q 3 years 2020 FIT/FOBT Q 1 year 2020 Flex Sig/CT Colonography Q 5 years 2020 INFLUENZA VACCINE (#1) 2025 ZOSTER VACCINE (1 of 2) 2025 Insurance [facility] [employer] ACCESS CHOICE Care Teams Ordnance Artificer Relationship Specialty Start Date End Date Archie Manley DO PCP - General Family Practice 03/10/19
== END ==
LOC: EXPTRAD 12:15
PROVIDERS: PCP Nurse Practitioner Family; Visit Provider Nurse Practitioner Family
DX: R10.A1 Flank pain, right side (principal); Z87.442 Personal history of urinary calculi
CPT/HCPCS: 74018

== ENCOUNTER 2025-04-22 08:47 | Outpatient (CLI) | payer OTHER, SELFPAY ==
--- NOTE | ~2025-04-22 | US_ITS ---
US abdomen complete EXAMINATION: US Abdomen Complete INDICATION: PROCEDURE: Realtime High Resolution abdomen ultrasound. COMPARISON: No prior studies for comparison FINDINGS: Gallbladder is surgically absent. Common bile duct measures 3.5 mm. Liver echotexture within normal limits without focal mass. Pancreas within normal limits. Pancreatic tail is obscured by bowel gas. Spleen is unremarkeable. Renal echotexture is within normal limits bilaterally without hydronephrosis, contour deforming mass or renal stone. Right kidney measures 11.6 cm. Left kidney measures 11 cm. Visualized aspects of the aorta and IVC are within normal limits. Portal vein is patent. No sonographic Buck's sign indicated by the technologist. IMPRESSION: 1: Unremarkable abdominal ultrasound. Reviewed, dictated and finalized at location O.
--- OUTSIDE RECORDS SUMMARY | 2025-04-22 09:25 | XMS_ITS | Clinical Summary ---
Author Organization [facility] Address [address] [place] [address] Care Team Providers Care Buckshot Swage Operator Name Role Phone Abel Real MD Primary Care Provider [phone] Immunizations Immunization Administration Dates Next Due Pfizer SARS-CoV-2 Monovalent Vaccination (12+ Yrs) PURPLE 10/16/2020,09/24/2020 Social History Tobacco Use Types Packs/Day Years Used Date Smoking Tobacco: Never Assessed Personal Safety Answer Date Recorded Getting School Help Needed Not on file 09/13 Sex and Gender Information Value Date Recorded Sex Assigned at Not on file Legal Sex Male 6:38 AM MANAGER OF CLINICAL Gender Identity Not on file Sexual Orientation [...] 09/20/2013 6:05 AM CDT {Testing performed by: [place] [address]} Interpretive Data If confirmation is required, call Laboratory Customer Service to request sample to be sent to [facility] for Hepatitis C Virus (HCV) RNA Detection and Quantitation by Real-Time Reverse Dry Plasterer Helper-PCR (RT-PCR). Current interpretive data was last revised on 2011 us Karan Helm MD LAB BLOOD ORDERABLES Final Re sult HISTORICAL RESULTS from Last 3 Months or Most Recently Relevant to Health Maintenance Insurance CHOICE PLUS Care Teams Buckshot Swage Operator Relationship Specialty Start Date End Date Abel Real MD PCP - General Family Medicine 07/27/22
--- OUTSIDE RECORDS SUMMARY | 2025-04-22 09:25 | XMS_ITS | Clinical Summary ---
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
== END 2025-04-22 08:48 | disposition home or self-care (01) ==
PROVIDERS: PCP Nurse Practitioner Family; Visit Provider Nurse Practitioner Family
DX: K57.32 Diverticulitis of large intestine without perforation or abscess without bleeding (principal); K40.90 Unilateral inguinal hernia, without obstruction or gangrene, not specified as recurrent; Z87.442 Personal history of urinary calculi
CPT/HCPCS: 76700

== ENCOUNTER 2025-04-28 15:27 | Outpatient (CLI) | payer OTHER, SELFPAY ==
--- NOTE | ~2025-04-28 | CT_ITS ---
EXAMINATION: CT abdomen pelvis wo con DATE: 04/28/2025 15:41 INDICATION: Right flank pain. TECHNIQUE: Computed tomography (CT) of the abdomen and pelvis was performed without intravenous contrast. Automated exposure control and iterative reconstruction technique were employed. The dose-length product was 339.17 mGy-cm. COMPARISON: None. FINDINGS: The visualized portions of the lung bases demonstrate minimal atelectasis on the right. No pleural effusion. The heart size is normal. No pericardial effusion. The liver and spleen are normal. There are changes of cholecystectomy. The pancreas, adrenal glands, and kidneys are normal. There is no urolithiasis. The prostate is mildly enlarged. There is a right inguinal hernia containing fat. There are scattered diverticula in the colon. There is fat stranding around the sigmoid colon, consistent with diverticulitis. The appendix is normal. There are no dilated loops of bowel. There are no pa thologically enlarged lymph nodes. There is no free intraperitoneal fluid. There is mild thoracic and lumbar spondylosis. IMPRESSION: 1. Sigmoid diverticulitis. No perforation or abscess. 2. No urolithiasis. 3. Right inguinal hernia containing fat. Reviewed, dictated and finalized at location E.
--- OUTSIDE RECORDS SUMMARY | 2025-04-28 17:30 | XMS_ITS | Clinical Summary ---
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
--- OUTSIDE RECORDS SUMMARY | 2025-04-28 17:30 | XMS_ITS | Clinical Summary ---
Author Organization [facility] Address [address] [place] [phone] Care Team Providers Care State Tested Nursing Assistant Name Role Phone Abel Real MD Primary Care Provider [phone] Immunizations Immunization Administration Dates Next Due Pfizer SARS-CoV-2 Monovalent Vaccination (12+ Yrs) PURPLE 10/16/2020,09/24/2020 Social History Tobacco Use Types Packs/Day Years Used Date Smoking Tobacco: Never Assessed Personal Safety Answer Date Recorded Getting School Help Needed Not on file 09/13 Sex and Gender Information Value Date Recorded Sex Assigned at Not on file 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 for Hepatitis C Virus (HCV) RNA Detection and Quantitation by Real-Time Reverse Poolroom/Poolhall Manager-PCR (RT-PCR). Current interpretive data was last revised on 2011 us Karan Helm MD LAB BLOOD ORDERABLES Final Re sult HISTORICAL RESULTS from Last 3 Months or Most Recently Relevant to Health Maintenance Insurance CHOICE PLUS Care Teams State Tested Nursing Assistant Relationship Specialty Start Date End Date Abel Real MD PCP - General Family Medicine 07/27/22
--- OUTSIDE RECORDS SUMMARY | 2025-04-28 17:30 | XMS_ITS | Clinical Summary ---
Author Organization [facility] Address [address] [place] [address] Care Team Providers Care Panelboard Operator Name Role Phone Tanja Willard MD Primary Care Provider [phone] Allergies No known active allergies Medications acetaminophen [...] Encounters Date Type Department Care Team Description 04/23/2025 12:45 PM CDT Office Visit [facility], [address] [address] Black Bender MD Palpitations (MCT/STRESS FU) 04/23/2025 Travel 04/16/2025 Results Follow-Up [facility], [address] [address] Muller, Jennifer S, RN STRESS TEST ONLY, EXERCISE, Short Term Holter 24 or 48 Hours 04/15/2025 11:30 AM CDT Telephone [facility], [address] [address] Black Bender MD Holter Monitor 04/15/2025 10:24 AM CDT - 04/15/2025 11:59 PM CDT Hospital Encounter [facility] [place] [address] Black Bender MD Discharge Disposition: Home or Self Care (Routine Discharge) 04/15/2025 Travel 04/03/2025 1:45 PM CDT Office Visit [facility], [address] [address] Black Bender MD Consult; Palpitations 04/03/2025 Travel from Last 3 Months Immunizations Immunization Administration Dates Next Due Influenza Adult (Generic) 04/16/2023,05/04/2022, 04/09/2021 [facility] COVID-19 BIVALENT (1 2+), MRNA, LNP-S, PF 03/27/2022 [facility] COVID-19 (12+), MRNA , LNP-S, PF, 50 MCG/0.5 ML (SPIKEVAX) 04/16/2023 [facility] COVID-19 ([employer] LUANN CHOLO), MRNA, LNP-S, PF, 50 MCG/ 0.25 ML DOSE 06/02/2021 Family History Medical History Relation Comments Defects Brother 1 Spina bifida Heart Disease Brother 1 Fast heart rate, palpitations Diabetes Father Early Father Heart Attack Father Kidney Disease Father Stroke Father Alcohol Abuse Mother Depression Mother Heart Disease Mother Mitral valve pro lapse, palpitations Valve Disease Mother Heart Attack Paternal Grandfather Heart Attack Paternal Grandmother Diabetes Paternal Uncle Relation Status Comments Brother 1 Alive Brother 2 Alive Father (Age 32) Mother Alive Paternal Grandfather (Age 74) Paternal Grandmother (Age 72) Paternal Uncle Alive Social History Tobacco Use Types Packs/Day Years Used Date Smoking Tobacco: Never Smokeless Tobacco: Never Tobacco Cessation:Counseling Given: Not Answered Alcohol Use Standard Drinks/Week Comments Yes 0 (1 standard drink = 0.6 oz pur e alcohol) 1 a week/ social Sex and Gender Information Value Date Recorded Sex Assigned at Male 04/15/2025 10:23 AM CDT Legal Sex Male 6:45 PM CDT Gender Identity Not on file Sexual Orientation Not on file Last Filed Vital Signs Vital Sign Reading Time Taken Comments Blood Pressure 122/72 04/23/2025 12:48 PM CDT Pulse 56 04/23/2025 12:48 PM CDT Temperature 36.4 C (97.6 F) 09/28/2023 4:15 PM CDT Respiratory Rate 18 09/28/2023 6:11 PM CDT Oxygen Saturation 99% 04/23/2025 12: 48 PM CDT Inhaled Oxygen Concentration - - Weight 106.3 kg (234 lb 6.4 oz) 025 12:48 PM CDT Height 182.9 cm (6') 04/23/2025 12:48 PM CDT Body Mass Index 31.79 04/23/2025 12:48 PM CDT Plan of Treatment Health Maintenance Due Date Last Done Comments Colorectal Cancer Screening Colonoscopy (10 Years) 1975 Annual Physical 1978 Hepatitis C 1993 DTaP, Tdap and Td Vaccines (1 - Tdap) 1994 Hepatitis B Vaccines (1 of 3 - 19+ 3-dose series) 1994 Pneumococcal Vaccine: 50+ Years (1 of 2 - PCV) 1994 COVID-19 Vaccine ( season) 2025 04/16/2023, 03/27/2022, 06/02/2021, Additional history exists Influenza Adult (#1) 2025 04/16/2023, 05/04/2022, 04/09/2021 Zoster Vaccines (1 of 2) 2025 Hepatitis A Vaccines Aged Out No long er eligible based on patient's age to complete this topic Meningococcal B Vaccine Aged Out No l onger eligible based on patient's age to complete this topic Meningococcal Vaccine Aged Out No patricia vijaya eligible based on patient's age to complete this topic RSV Immunizations Under 20 Months Aged Out No longer eligible based on patient's age to complete this topic Procedures Procedure Name Priority Date/Time Associated Diagnosis Comments XTRNL ECG REC<48 HRS RECORDING SCAN A/R R&I Routine 04/22/2025 10:38 AM CDT Palpitations BROOKS (dyspnea on exertion) STRESS TEST ONLY, EXERCISE Routine 04/15/2025 2:38 PM CDT Palpitations BROOKS (dyspnea on exertion) ELECTROCARDIOGRAM (NON MIDMARK ACQUIRED) Routine 04/03/2025 2:01 PM CDT Palpitations from Last 3 Months Results * Short Term Holter 24 or 48 Hours (04/22/2025 10:38 AM CDT) Narrative [employer] - 04/22/2025 10:38 AM CDT HOLTER MONITOR REPORT Patient Name: Yokasta Watkins : 1975 Experimental Physicist Date: 04-15-25 Performed At: [place], [place] Interpreting Wild Life Photographer: RONNY BLACKMAN M.D. PCP: TANJA WILLARD MD INDICATION: arrhythmia DURATION OF MONITORIN hours BASELINE RHYTHM: sinus HEART RATE: Minimum: 48 BPM, Maximum: 165 BPM, Average: 60 BPM PAUSES: none INTERPRETATION: Sinus rhythm Mild nocturnal bradycardia 40s - 50s No pauses Low frequency PACs ,total 271 Three short runs of insignificant nonsustained SVT 3.1 sec. Rate 124 3.0 sec. Rate 160 3.9 sec. Rate 110 Rare PVCs, total 14 ND 0.19, QRS 0.-08, QTc 0.39 11 patient- generated events 7 no specified symptoms - sinus rate 72,135, 140,145,162,163,165 2 palpitations - sinus rate 128, 152 2 palpitations, shortness of breath - sinus rate 96 , 106 CONCLUSION: Sinus rhythm with average rate 60 Rare PVC,low frequency PACS with insignificant nonsustained SVT Recorded events with episodes of symptomatic sinus tachycardia Electronically signed by RONNY BLACKMAN MD 04/22/2025 11:29 AM us Black Bender MD PROCEDURES Final Resul t [facility] * STRESS TEST ONLY, EXERCISE (04/15/2025 2:38 PM CDT) 04/15/2025 2:38 PM CDT Narrative [facility] - 04/15/2025 6:44 PM CDT STRESS TEST TRACING ONLY Pat.Name: YOKASTA WATKINS Pat.ID: [id number] St.Date: 04/15/2025 Refer.MD: Tanja Willard MD Exam Time: 2:38:00 PM Study Type:HOMER NC STRESS TEST TRACING ONLY Height: 72 in Weight: 230 lb BSA: 2.26 m2 Age: 10 1975,50Y Sex: M Pat. Stat.:Outpatient Reason for Study:Abnormal EKG, Palpitations, Syncope History / Clinical:None Procedures: Regular Stress Test Race: W Medications:Acetaminophen, Omeprazole, Sildenafil ++++++++++++++++++++++++++++++++++++ SUMMARY: ++++++++++++++++++++++++++++++++++++ Stress conclusion: 1. Clinically negative. 2. Electrocardiographically negative treadmill test for ischemia. 3. Excellent exercise capacity. 4. Blood pressure response was normal. 5. Sanchez Treadmill Score is 10.5, which indicates low risk. ++++++++++++++++++++++++++++++++++++ STRESS: ++++++++++++++++++++++++++++++++++++ Baseline Vital Signs: Baseline ECG: Sinus rhythm HR: 57 bmp Rest BP: 127/64 Treadmill Test Protocol: Wilfredo Duration: 10:42 min:sec Max. Workload (METS): 12.1 Stress Test Results: Max HR: 161 bmp Target HR: 170 bmp % Target: 95 % Max BP: 180/84 Max RPP: 81682 O2 sat: 100 % Symptoms and Complications: Reason for Stopping Test: Shortness of breath, Dyspnea Stress Induced Symptoms: Shortness of breath, Dyspnea Complications: None ECG Findings: Sinus tachycardia, occasional PVC couplets <Electronic Signature> 04/15/2025 06:44 PM Black Bender M.D. Procedure Note Black Bender MD - 04/15/2025 STRESS TEST TRACING ONLY Pat.Name: YOKASTA WATKINS Pat.ID: [id number] .Date: 04/15/2025 Refer.MD: Tanja Willard MD Exam Time: 2:38:00 PM Study Type:HOMER NC STRESS TEST TRACING ONLY Height: 72 in Weight: 230 lb BSA: 2.26 m2 Age: 10 1975,50Y Sex: M Pat. Stat.:Outpatient Reason for Study:Abnormal EKG, Palpitations, Syncope History / Clinical:None Procedures: Regular Stress Test Race: W Medications:Acetaminophen, Omeprazole, Sildenafil ++++++++++++++++++++++++++++++++++++ SUMMARY: ++++++++++++++++++++++++++++++++++++ Stress conclusion: 1. Clinically negative. 2. Electrocardiographically negative treadmill test for ischemia. 3. Excellent exercise capacity. 4. Blood pressure response was normal. 5. Sanchez Treadmill Score is 10.5, which indicates low risk. ++++++++++++++++++++++++++++++++++++ STRESS: ++++++++++++++++++++++++++++++++++++ Baseline Vital Signs: Baseline ECG: Sinus rhythm HR: 57 bmp Rest BP: 127/64 Treadmill Test Protocol: Wilfredo Duration: 10:42 min:sec Max. Workload (METS): 12.1 Stress Test Results: Max HR: 161 bmp Target HR: 170 bmp % Target: 95 % Max BP: 180/84 Max RPP: 52232 O2 sat: 100 % Symptoms and Complications: Reason for Stopping Test: Shortness of breath, Dyspnea Stress Induced Symptoms: Shortness of breath, Dyspnea Complications: None ECG Findings: Sinus tachycardia, occasional PVC couplets <Electronic Signature> 04/15/2025 06:44 PM Black Bender M.D. us Black Bender MD CV CARDIAC SERVICES ORDERAB LES Final Result [facility] RAD * ELECTROCARDIOGRAM (04/03/2025 2:01 PM CDT) 04/03/2025 2:01 PM CDT Narrative [facility] - 04/09/2025 2:43 PM CDT [facility] Test Date: 2025-04-03 Pat Name: YOKASTA WATKINS Department: 112 Room: Gender: Male Perinatal Nurse: : 1975 Requested By: BLACK BENDER Order Number: [id number] Reading MD: Black Bender Measurements Intervals [place] Rate: 58 P: 62 ND: 187 QRS: 6 QRSD: 81 T: 47 QT: 388 QTc: 382 Interpretive Statements SINUS BRADYCARDIA WARNING: DATA QUALITY MAY AFFECT INTERPRETATION Procedure Note Black Bender MD - 04/09/2025 [facility] Test Date: 2025-04-03 Pat Name: YOKASTA WATKINS Department: 112 Room: Gender: Male Perinatal Nurse: : 1975 Requested By: BLACK BENDER Order Number: [id number] Reading : Black Bender Measurements Intervals [place] Rate: 58 P: 62 ND: 187 QRS: 6 QRSD: 81 T: 47 QT: 388 QTc: 382 Interpretive Statements SINUS BRADYCARDIA WARNING: DATA QUALITY MAY AFFECT INTERPRETATION us Black Bender MD PROCEDURES-ORDERABLE NO RUBY RGE Final Result [facility] from Last 3 Months Insurance [facility] Care Teams Panelboard Operator Relationship Specialty Start Date End Date Tanja Willard MD [address] [place] [address] [address] [place], [place] [address] PCP - General FAMILY PRACTICE 09/28/23
--- OUTSIDE RECORDS SUMMARY | 2025-04-28 17:30 | XMS_ITS | Encounter Summary ---
Author Organization [facility] Address [facility] [place] [address] Care Team Providers Care Iron Worker Name Role Phone Otoniel Willard MD Primary Care Provider [phone] Encounter Details Date Type Department Care Team (Late st Contact Info) Description 04/16/2025 Results Follow-Up [facility], [address] [place] [address] Jennifer Muller RN STRESS TEST ONLY, EXERCISE, Short Term Holter 24 or 48 Hours Social History Tobacco Use Types Packs/Day Years Used Date Smoking Tobacco: Never Smokeless Tobacco: Never Alcohol Use Standard Drinks/Week Comments Yes 0 (1 standard drink = 0.6 oz pur e alcohol) 1 a week/ social Sex and Gender Information Value Date Recorded Sex Assigned at Male 04/15/2025 10:23 AM CDT Legal Sex Male 6:45 PM CDT Gender Identity Not on file Sexual Orientation Not on file documented as of this encounter Plan of Treatment Not on file documented as of this encounter Visit Diagnoses Not on filedocumented in this encounter Care Teams Iron Worker Relationship Specialty Start Date End Date Otoniel Willard MD [address] [place] [address] [address] [place] [address] PCP - General FAMILY PRACTICE 09/28/23 documented as of this encounter
== END 2025-04-28 15:28 | disposition home or self-care (01) ==
LOC: ANHIMG 15:28
PROVIDERS: PCP Nurse Practitioner Family; Visit Provider Nurse Practitioner Family
DX: K40.90 Unilateral inguinal hernia, without obstruction or gangrene, not specified as recurrent (principal); K57.32 Diverticulitis of large intestine without perforation or abscess without bleeding
CPT/HCPCS: 74176